=== PATIENT | female | born 1975 | race Caucasian/White ===

== ENCOUNTER → 2017-03-17 | Outpatient (CLI) | payer OTHER ==
[2014-08-03 14:12] VITALS: BP 123/80
[~2017-03-17] MED LIST: HYDR25SU4 RC; METR500T4 PO
--- NOTE | 2017-03-17 11:55 | KCIC ---
PROCEDURE Bilateral two-view feet HISTORY Pain at the bottom of both feet. COMPARISON None FINDINGS No evidence of acute fracture. No aggressive bone destruction. Joint spaces and alignment are intact. No evidence of soft tissue abnormality. IMPRESSION No acute radiographic abnormality. Electronically signed by: Feng Walker MD (March 17, 2017 11:53:00)
--- NOTE | 2017-03-17 11:58 | KCIC ---
PROCEDURE Bilateral two-view hand HISTORY Pain at both thumbs. COMPARISON None FINDINGS No acute fracture or bone destruction. Mild asymmetric narrowing at the lateral aspect the 5th DIP joint bilaterally with mild angulation of the joint, may be developmental given its symmetry. No dislocation. IMPRESSION No evidence of acute radiographic abnormality. Electronically signed by: Feng Walker MD (March 17, 2017 11:56:17)
--- NOTE | 2017-03-17 11:59 | KCIC ---
PROCEDURE Single view AP pelvis HISTORY Pain. COMPARISON None FINDINGS No evidence of acute fracture. No aggressive bone destruction. Joint spaces are intact. IMPRESSION No acute radiographic abnormality. Electronically signed by: Feng Walker MD (March 17, 2017 11:57:55)
== END | disposition home or self-care (01) ==
LOC: KCIC US 09:19
PROVIDERS: ATTEND Family Medicine
DX: M79.672 Pain in left foot (principal); M79.642 Pain in left hand; M79.641 Pain in right hand; R10.2 Pelvic and perineal pain
CPT/HCPCS: 72170; 73120; 73620

== ENCOUNTER 2017-10-15 20:05 | Emergency (ER) | payer OTHER ==
[~2017-10-15 20:05] MED LIST changes: -METR500T4 PO; +METR500T8 PO
[2017-10-15] MEDS ORDERED: DEXAMETHASONE SOD PHOS 20 MG/5 ML VIAL. IV ONE (20:30)
[2017-10-15] MEDS ORDERED: ASPIRIN ENTERIC COATED 325 MG TABLET.DR. PO ONE (20:30)
[2017-10-15] MEDS ORDERED: IPRATRPIUM/ALBUTEROL 0.5/2.5MG 3 ML NEBU. NEB ONE (20:30)
[2017-10-15 21:02] LABS: BASO # 0.1 x10^3/uL (0.0-0.2); BASO % 1 % (0-3); EOS % 4 % (0-3); HEMATOCRIT 39.6 % (36.0-47.0); HEMOGLOBIN 13.3 g/dL (12.0-15.5); LYMPH % 32 % (24-48); MEAN CORPUSCULAR HEMOGLOBIN 30 pg (25-35); MEAN CORPUSCULAR HGB CONC 34 g/dL (31-37); MEAN CORPUSCULAR VOLUME 89 fL (79-100); MONO % 6 % (0-9); NEUT % 57 % (31-73); PLATELET COUNT 285 x10^3/uL (140-400); RED BLOOD COUNT 4.46 x10^6/uL (3.50-5.40); RED CELL DISTRIBUTION WIDTH 13.1 % (11.5-14.5); WHITE BLOOD COUNT 9.4 x10^3/uL (4.0-11.0)
[2017-10-15 21:22] VITALS: BP 123/72
[2017-10-15 21:48] LABS: CALCIUM 8.6 mg/dL (8.5-10.1); CREATININE 0.8 mg/dL (0.6-1.0); GFR 77.9; INR 1.2 (0.8-1.1); PARTIAL THROMBOPLASTIN TIME 31 SEC (24-38); POTASSIUM 3.1 mmol/L (3.5-5.1); PROTHROMBIN TIME PATIENT 14.1 SEC (11.7-14.0)
[2017-10-15 21:54] LABS: ALBUMIN 3.6 g/dL (3.4-5.0); TOTAL BILIRUBIN 0.2 mg/dL (0.2-1.0); TOTAL PROTEIN 7.1 g/dL (6.4-8.2)
--- NOTE | 2017-10-15 22:02 | PHYS DOC ---
Past Medical History Past Medical History: No Pertinent History Past Surgical History: Cholecystectomy, Hysterectomy, Tonsillectomy, Other Additional Past Surgical Histo: I&D rectal abscess (was positive for MRSA) Alcohol Use: None Drug Use: None Adult General Chief Complaint Chief Complaint: CHEST PAIN HPI HPI Patient is a 42 year old female presenting to the emergency department for evaluation of chest pain that started approximately 6 hours prior to arrival at rest. 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 The first urgent care she went to said that they could not do a chest x-ray and sent her to another urgent care where she had a chest x-ray done. That urgent care told her that she should go to the emergency room. She says that she is having central sharp chest pain with no radiation diaphoresis nausea vomiting but she says that she feels short of breath in the sense that she cannot take a deep breath. She says that deep breaths make her pain worse. She denies any exertional pain fevers chills nausea vomiting or other systemic symptoms. She denies high blood pressure high cholesterol diabetes smoking history. She says that her mother of a heart attack in her late 50s. Heart score is equal to 1. Review of Systems Review of Systems Constitutional: Denies fever or chills [] Eyes: Denies change in visual acuity, redness, or eye pain [] HENT: Denies nasal congestion or sore throat [] Respiratory: + cough, shortness of breath [] Cardiovascular: + CP GI: Denies abdominal pain, nausea, vomiting, bloody stools or diarrhea [] : Denies dysuria or hematuria [] Musculoskeletal: Denies back pain or joint pain [] Integument: Denies rash or skin lesions [] Neurologic: Denies headache, focal weakness or sensory changes [] All other systems were reviewed and found to be within normal limits, except as documented in this note. Current Medications Current Medications Current Medications Medications (Trade) Dose Ordered Sig/Hailey Start Time Stop Time Status Last Admin Dose Admin Albuterol/ Ipratropium (Duoneb) 3 ml 1X ONCE 10/15/17 20:30 10/15/17 20:32 DC 10/15/17 21:05 3 ML Aspirin (Ecotrin) 325 mg 1X ONCE 10/15/17 20:30 10/15/17 20:32 DC 10/15/17 21:05 325 MG Dexamethasone Sodium Phosphate (Decadron) 8 mg 1X ONCE 10/15/17 20:30 10/15/17 20:32 DC 10/15/17 21:07 8 MG Potassium Chloride (Klor-Con) 40 meq 1X ONCE 10/15/17 22:30 10/15/17 22:30 DC 10/15/17 22:20 40 MEQ Allergies Allergies Allergies Coded Allergies Type Severity Reaction Last Updated Verified Penicillins Allergy Intermediate Unk reaction. 08/03/14 Yes Sulfa (Sulfonamide Antibiotics) Allergy Intermediate Severe N/V. 08/03/14 Yes prednisone Allergy Intermediate Joints ache are painful. 08/03/14 Yes prochlorperazine Allergy Intermediate Palpitations. 08/03/14 Yes promethazine Allergy Intermediate Palpitations. 08/03/14 Yes Physical Exam Physical Exam Constitutional: Well developed, well nourished, no acute distress, non-toxic appearance. [] HENT: Normocephalic, atraumatic, bilateral external ears normal, oropharynx moist, no oral exudates, nose normal. [] Eyes: PERRLA, EOMI, conjunctiva normal, no discharge. [] Neck: Normal range of motion, no tenderness, supple, no stridor. [] Cardiovascular:Heart rate regular rhythm, no murmur [] Lungs & Thorax: Bilateral breath sounds diminished with expiratory wheezing noted Abdomen: Bowel sounds normal, soft, no tenderness, no masses, no pulsatile masses. [] Skin: Warm, dry, no erythema, no rash. [] Back: No tenderness, no CVA tenderness. [] Extremities: No tenderness, no cyanosis, no clubbing, ROM intact, no edema. [] Neurologic: Alert and oriented X 3, normal motor function, normal sensory function, no focal deficits noted. [] Current Patient Data Vital Signs Vital Signs Date Time Temp Pulse Resp B/P (MAP) Pulse Ox O2 Delivery O2 Flow Rate FiO2 10/15/17 21:22 72 16 123/72 (89) 97 Room Air 10/15/17 20:16 97.8 97.8 Lab Values Laboratory Tests Test 10/15/17 20:53 10/15/17 21:30 White Blood Count 9.4 x10^3/uL (4.0-11.0) Red Blood Count 4.46 x10^6/uL (3.50-5.40) Hemoglobin 13.3 g/dL (12.0-15.5) Hematocrit 39.6 % (36.0-47.0) Mean Corpuscular Volume 89 fL (79-100) Mean Corpuscular Hemoglobin 30 pg (25-35) Mean Corpuscular Hemoglobin Concent 34 g/dL (31-37) Red Cell Distribution Width 13.1 % (11.5-14.5) Platelet Count 285 x10^3/uL (140-400) Neutrophils (%) (Auto) 57 % (31-73) Lymphocytes (%) (Auto) 32 % (24-48) Monocytes (%) (Auto) 6 % (0-9) Eosinophils (%) (Auto) 4 % (0-3) H Basophils (%) (Auto) 1 % (0-3) Neutrophils # (Auto) 5.4 x10^3uL (1.8-7.7) Lymphocytes # (Auto) 3.0 x10^3/uL (1.0-4.8) Monocytes # (Auto) 0.6 x10^3/uL (0.0-1.1) Eosinophils # (Auto) 0.3 x10^3/uL (0.0-0.7) Basophils # (Auto) 0.1 x10^3/uL (0.0-0.2) Troponin I Quantitative < 0.017 ng/mL (0.000-0.055) Prothrombin Time 14.1 SEC (11.7-14.0) H Prothrombin Time INR 1.2 (0.8-1.1) H PTT 31 SEC (24-38) D-Dimer (Lydia) < 0.27 ug/mlFEU Sodium Level 140 mmol/L (136-145) Potassium Level 3.1 mmol/L (3.5-5.1) L Chloride Level 105 mmol/L (98-107) Carbon Dioxide Level 24 mmol/L (21-32) Anion Gap 11 (6-14) Blood Urea Nitrogen 8 mg/dL (7-20) Creatinine 0.8 mg/dL (0.6-1.0) Estimated GFR (Cockcroft-Gault) 77.9 BUN/Creatinine Ratio 10 (6-20) Glucose Level 107 mg/dL (70-99) H Calcium Level 8.6 mg/dL (8.5-10.1) Magnesium Level 2.0 mg/dL (1.8-2.4) Total Bilirubin 0.2 mg/dL (0.2-1.0) Aspartate Amino Transferase (AST) 15 U/L (15-37) Alanine Aminotransferase (ALT) 21 U/L (14-59) Alkaline Phosphatase 65 U/L (46-116) Total Protein 7.1 g/dL (6.4-8.2) Albumin 3.6 g/dL (3.4-5.0) Albumin/Globulin Ratio 1.0 (1.0-1.7) Laboratory Tests 10/15/17 20:53 Laboratory Tests 10/15/17 21:30 EKG EKG Sinus rhythm at 64 bpm with normal axis no obvious ST elevation or depression and normal T waves. Radiology/Procedures Radiology/Procedures Chest x-ray reviewed from outside facility showed normal mediastinum and normal heart size no obvious free air pneumothorax or opacity. Course & Med Decision Making Course & Med Decision Making Patient with chest pain that started more than 6 hours prior to arrival with negative troponin and EKG. Her d-dimer is negative and she said the breathing treatment made her shortness of breath and pain go away. I see no reason for admission or further workup given she appears well normal vital signs benign physical exam and workup. She will be discharged and told to take an aspirin daily not to exert herself and follow with primary care provider and/or email marketing coordinator within 72 hours and come back to the ED sooner with worsening pain shortness of breath or other general concerns. Patient aware and agreeable with plan for discharge and verbalized understanding of the need for short-term follow-up in the strict ED return precautions that were discussed as above. Dragon Disclaimer Dragon Disclaimer This electronic medical record was generated, in whole or in part, using a voice recognition dictation system. Departure Departure Impression: Primary Impression: Chest pain Additional Impressions: Bronchitis Hypokalemia Disposition: 01 HOME, SELF-CARE Condition: STABLE Referrals: NO PCP (PCP) BIRDIE JUAREZ MD Patient Instructions: Chest Pain (Nonspecific) Additional Instructions: TAKE A FULL DOSE ASPIRIN DAILY. DO NOT EXERT YOURSELF. 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 THANK YOU! Problem Qualifiers Primary Impression: Chest pain Chest pain type: unspecified Qualified Codes: R07.9 - Chest pain, unspecified SANDRA PORTER DO Oct 15, 2017 22:02
[2017-10-15] MEDS ORDERED: POTASSIUM CHLORIDE 20 MEQ TABLET.ER. PO ONE (22:30)
--- NOTE | 2017-10-16 06:22 | EKG ---
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
== END 2017-10-15 22:27 | disposition home or self-care (01) ==
LOC: ER 20:05
DX: R07.89 Other chest pain (principal); J40 Bronchitis, not specified as acute or chronic; E87.6 Hypokalemia; Z88.0 Allergy status to penicillin; Z88.2 Allergy status to sulfonamides; Z88.8 Allergy status to other drugs, medicaments and biological substances
CPT/HCPCS: 36415; 80053; 83735; 84484; 85025; 85379; 85610; 85730; 93005; 94250; 94640; 96374; 99285; J1100; J7620

== ENCOUNTER → 2017-11-10 | Outpatient (CLI) | payer OTHER | END | disposition home or self-care (01) | LOC: ECHO 12:49 | DX: I34.0 Nonrheumatic mitral (valve) insufficiency (principal) | CPT/HCPCS: 93017; 93306; 93350 ==

== ENCOUNTER 2021-12-03 11:49 | Emergency (ER) | payer OTHER ==
[~2021-12-03] VITALS: Ht 165.1 cm; Wt 95.0 kg
[~2021-12-03 11:49] MED LIST changes: +METR-34 PO; -METR500T8 PO
--- NOTE | 2021-12-03 12:11 | PHYS DOC ---
Past Medical History Past Medical History: No Pertinent History Past Surgical History: No Surgical History Additional Past Surgical Histo: I&D rectal abscess (was positive for MRSA) Smoking Status: Current Every Day Smoker Alcohol Use: None Drug Use: None General Adult EDM: Chief Complaint: FLANK PAIN HPI: HPI: Patient is a 46-year-old female who presents to the emergency department for left flank pain that started this morning. Patient reports that prior to this weekend she was having some fatigue and had 2 - Covid test at home. Patient is also reporting dysuria with urinary frequency and urgency. She does not have any medical history. No history of kidney stones. Patient denies nausea, vomiting, abdominal pain, fevers, hematuria. Review of Systems: Review of Systems: Constitutional: negative unless reported in HPI Eyes: negative unless reported in HPI HENT: negative unless reported in HPI Respiratory: negative unless reported in HPI Cardiovascular: negative unless reported in HPI GI: negative unless reported in HPI : negative unless reported in HPI Musculoskeletal: negative unless reported in HPI Integument: negative unless reported in HPI Neurologic: negative unless reported in HPI Endocrine: negative unless reported in HPI Lymphatic: negative unless reported in HPI Psychiatric: negative unless reported in HPI Heart Score: C/O Chest Pain: N/A Risk Factors: Risk Factors: DM, Current or recent (<one month) smoker, HTN, HLP, family histo ry of CAD, obesity. Risk Scores: Score 0 - 3: 2.5% MACE over next 6 weeks - Discharge Home Score 4 - 6: 20.3% MACE over next 6 weeks - Admit for Clinical Observation Score 7 - 10: 72.7% MACE over next 6 weeks - Early Invasive Strategies Allergies: Allergies: Allergies Coded Allergies Type Severity Reaction Last Updated Verified Penicillins Allergy Intermediate Unk reaction. 12/03/21 Yes Sulfa (Sulfonamide Antibiotics) Adverse Reaction Intermediate Severe N/V. 12/03/21 Yes prednisone Adverse Reaction Intermediate Joints ache are painful. 12/03/21 Yes prochlorperazine Adverse Reaction Intermediate Palpitations. 12/03/21 Yes promethazine Adverse Reaction Intermediate Palpitations. 12/03/21 Yes Physical Exam: PE: Constitutional: Well developed, well nourished, no acute distress, non-toxic appearance. [] HENT: Normocephalic, atraumatic, bilateral external ears normal, oropharynx moist, no oral exudates, nose normal. [] Eyes: PERRL, EOMI, conjunctiva normal, no discharge. [] Neck: Normal range of motion, no tenderness, supple, no stridor. [] Cardiovascular:Heart rate regular rhythm, no murmur [] Lungs & Thorax: Bilateral breath sounds clear to auscultation [] Abdomen: Bowel sounds normal, soft, no tenderness, no masses, no guarding, no rigidity,, no pulsatile masses. [] Skin: Warm, dry, no erythema, no rash. [] Back: No tenderness, left CVA tenderness Extremities: No tenderness, no cyanosis, no clubbing, ROM intact, no edema. [] Neurologic: Alert and oriented X 3, normal motor function, normal sensory function, no focal deficits noted. [] Psychologic: Affect normal, judgement normal, mood normal. [] Current Patient Data: Labs: Laboratory Tests Test 12/03/21 12:34 12/03/21 13:12 Urine Collection Type Unknown Urine Color Yellow Urine Clarity Clear Urine pH 6.0 Urine Specific [place] <=1.005 Urine Protein Negative mg/dL Urine Glucose (UA) Negative mg/dL Urine Ketones (Stick) Negative mg/dL Urine Blood Large Urine Nitrite Negative Urine Bilirubin Negative Urine Urobilinogen Dipstick 0.2 mg/dL Urine Leukocyte Esterase Negative Urine RBC 0 /HPF Urine WBC Rare /HPF Urine Squamous Epithelial Cells Few /LPF Urine Bacteria Few /HPF Urine Mucus Slight /LPF Urine Test Negative White Blood Count 9.4 x10^3/uL Red Blood Count 4.84 x10^6/uL Hemoglobin 14.3 g/dL Hematocrit 41.4 % Mean Corpuscular Volume 86 fL Mean Corpuscular Hemoglobin 30 pg Mean Corpuscular Hemoglobin Concent 35 g/dL Red Cell Distribution Width 12.4 % Platelet Count 254 x10^3/uL Neutrophils (%) (Auto) 65 % Lymphocytes (%) (Auto) 25 % Monocytes (%) (Auto) 6 % Eosinophils (%) (Auto) 3 % Basophils (%) (Auto) 1 % Neutrophils # (Auto) 6.1 x10^3/uL Lymphocytes # (Auto) 2.4 x10^3/uL Monocytes # (Auto) 0.6 x10^3/uL Eosinophils # (Auto) 0.2 x10^3/uL Basophils # (Auto) 0.1 x10^3/uL Sodium Level 135 mmol/L Potassium Level 4.2 mmol/L Chloride Level 104 mmol/L Carbon Dioxide Level 23 mmol/L Anion Gap 8 Blood Urea Nitrogen 11 mg/dL Creatinine 0.7 mg/dL Estimated GFR (Cockcroft-Gault) 89.3 BUN/Creatinine Ratio 16 Glucose Level 99 mg/dL Calcium Level 8.4 mg/dL Total Bilirubin 0.3 mg/dL Aspartate Amino Transf (AST/SGOT) 21 U/L Alanine Aminotransferase (ALT/SGPT) 38 U/L Alkaline Phosphatase 59 U/L Total Protein 7.1 g/dL Albumin 3.6 g/dL Albumin/Globulin Ratio 1.0 Current Medications Medications (Trade) Dose Ordered Sig/Hailey Route PRN Reason Start Time Stop Time Status Last Admin Dose Admin Sodium Chloride 1,000 ml @ 1,000 mls/hr 1X ONCE IV 12/03/21 13:00 12/03/21 13:59 DC 12/03/21 13:00 Ketorolac Tromethamine (Toradol 30mg Vial) 30 mg 1X ONCE IVP 12/03/21 13:15 12/03/21 13:16 DC 12/03/21 13:15 Vital Signs: Vital Signs Date Time Temp Pulse Resp B/P (MAP) Pulse Ox O2 Delivery O2 Flow Rate FiO2 12/03/21 12:01 98.5 104 16 155/107 (123) 96 Room Air 98.5 EKG: EKG: [] Radiology/Procedures: Radiology/Procedures: []STATUS: REG [facility]. PHYSICIAN: MONTRELL VILLATORO APRN REASON: l. flank pain, r/o stone PROCEDURE: CT ABDOMEN PELVIS WO CONTRAST INDICATION: Reason: l. flank pain, r/o stone / Spl. Instructions: / History: COMPARISON: None. TECHNIQUE: Axial CT images were obtained through the abdomen and pelvis without intravenous contrast. One or more of the following individualized dose reduction techniques were utilized for this examination: 1. Automated exposure control; 2. Adjustment of the mA and/or kV according to patient size; 3. Use of iterative reconstruction technique. FINDINGS: Fat-containing umbilical hernia. Vascular: Scattered calcific atherosclerosis. Hepatobiliary: Liver prominent in size. Postcholecystectomy. Small hiatal hernia. Pancreas: Limited assessment secondary to lack of contrast. Spleen: Spleen unremarkable. Renal/Bladder: Nonobstructive left renal stones. Mild left-sided hydronephrosis with 3 mm left proximal ureter stone. Urinary bladder is somewhat distended at time of exam. Gastrointestinal: Colonic diverticulosis. No periappendiceal inflammatory changes. Fat-containing anterior abdominal wall hernia. Mild degenerative changes spine. IMPRESSION: * Mild left-sided hydronephrosis with proximal ureter stone. Electronically signed by: Sara Vieira MD (12/03/2021 3:13 PM) [id number] DICTATED and SIGNED BY: SARA VIEIRA MD DATE: 12/03/21 [id number] 0 Course & Med Decision Making: Course & Med Decision Making Pertinent Labs and Imaging studies reviewed. (See chart for details) [] Patient resents emergency department for left flank pain with dysuria and urinary frequency and urgency that started this morning. Urinalysis shows large amount of blood but no clear infection as there is only rare white blood cells and no leukocytes. CBC and CMP were unremarkable. CT scan of abdomen and pelvis shows a 3 mm stone with mild left hydronephrosis in the proximal ureter. Her vital signs are stable she is in no acute distress. Patient will be discharged home with pain medication and Flomax. She is advised to increase her fluids and she will give be given urology follow-up information. I discussed with patient all findings and diagnostic testing as well as the need to follow- up with PCP for further evaluation and treatment or return to the ER if any new or worsening symptoms. Strict return precautions were also discussed at length. Patient voiced understanding and agreement with the plan. Patient is hemodynamically stable at the time of disposition. Dorian Disclaimer: Dorian Disclaimer: This electronic medical record was generated, in whole or in part, using a voice recognition dictation system. Departure Departure Impression: Primary Impression: Kidney stone Disposition: HOME / SELF CARE / HOMELESS Condition: GOOD Referrals: NO PCP (PCP) MARIA ANTONIA WHITE MD Patient Instructions: Kidney Stones Additional Instructions: You were seen in the ER today for flank pain and bloody urine. You have a kidney stone that will hopefully pass. We are writing a prescription for pain medication and a medication to help dilate the ureter so that you can pass the stone more easily. You should strain your urine and look for the stone. You will need to follow-up with urologist as soon as possible. Please see the referral information for the urologist attached to this paper. Increase your fluids. You should return to the ER if you have worsening pain, fever, continued bloody urine, lightheadedness, shortness of breath, chest pain or any new or concerning symptoms. Scripts Tamsulosin Hcl (FLOMAX) 0.4 Mg Cap.er.24h 1 CAP PO DAILY for 14 Days, #14 CAP 0 Refills Prov: MONTRELL VILLATORO APRN 12/03/21 Hydrocodone Bit/Acetaminophen (HYDROCODONE-APAP 5-325 ) 1 Tab Tablet 1 TAB PO PRN Q6HRS PRN for PAIN for 2 Days, #8 TAB 0 Refills Prov: MONTRELL VILLATORO APRN 12/03/21 MONTRELL VILLATORO APRN Dec 03, 2021 12:11
[2021-12-03 12:47] LABS: BILIRUBIN,URINE NEGATIVE (NEG); CLARITY,URINE CLEAR; COLOR,URINE YELLOW; NITRITE,URINE NEGATIVE (NEG); PROTEIN,URINE NEGATIVE (NEG-TRACE); UROBILINOGEN,URINE 0.2 mg/dL (0.2 mg/dL)
[2021-12-03 12:55] LABS: BACTERIA,URINE FEW /HPF (0-FEW); RBC,URINE 0 /HPF (0-2); WBC,URINE RARE /HPF (0-4)
[2021-12-03] MEDS: IV NORMAL SALINE 1000ML BAG 1,000 ML IV ONE (13:00)
[2021-12-03] MEDS: KETOROLAC 30 MG/ML VIAL. IVP ONE (13:15)
[2021-12-03 13:26] LABS: BASO # 0.1 x10^3/uL (0.0-0.2); BASO % 1 % (0-3); EOS # 0.2 x10^3/uL (0.0-0.7); EOS % 3 % (0-3); HEMATOCRIT 41.4 % (36.0-47.0); HEMOGLOBIN 14.3 g/dL (12.0-15.5); LYMPH # 2.4 x10^3/uL (1.0-4.8); LYMPH % 25 % (24-48); MEAN CORPUSCULAR HEMOGLOBIN 30 pg (25-35); MEAN CORPUSCULAR HGB CONC 35 g/dL (31-37); MEAN CORPUSCULAR VOLUME 86 fL (79-100); MONO # 0.6 x10^3/uL (0.0-1.1); MONO % 6 % (0-9); NEUT # 6.1 x10^3/uL (1.8-7.7); NEUT % 65 % (31-73); PLATELET COUNT 254 x10^3/uL (140-400); RED BLOOD COUNT 4.84 x10^6/uL (3.50-5.40); RED CELL DISTRIBUTION WIDTH 12.4 % (11.5-14.5); WHITE BLOOD COUNT 9.4 x10^3/uL (4.0-11.0)
[2021-12-03 13:37] LABS: CALCIUM 8.4 mg/dL (8.5-10.1); CREATININE 0.7 mg/dL (0.6-1.0); GFR 89.3; POTASSIUM 4.2 mmol/L (3.5-5.1)
[2021-12-03 13:44] LABS: ALBUMIN 3.6 g/dL (3.4-5.0); TOTAL BILIRUBIN 0.3 mg/dL (0.2-1.0); TOTAL PROTEIN 7.1 g/dL (6.4-8.2)
[2021-12-03 14:18] LABS: U PREG PATIENT NEGATIVE (NEG)
--- NOTE | 2021-12-03 15:15 | RAD ---
INDICATION: Reason: l. flank pain, r/o stone / Spl. Instructions: / History: COMPARISON: None. TECHNIQUE: Axial CT images were obtained through the abdomen and pelvis without intravenous contrast. One or more of the following individualized dose reduction techniques were utilized for this examinat ion: 1. Automated exposure control; 2. Adjustment of the mA and/or kV according to patient size; 3 . Use of iterative reconstruction technique. FINDINGS: Fat-containing umbilical hernia. Vascular: Scattered calcific atherosclerosis. Hepatobiliary: Liver prominent in size. Postcholecystectomy. Small hiatal hernia. Pancreas: Limited assessment secondary to lack of contrast. Spleen: Spleen unremarkable. Renal/Bladder: Nonobstructive left renal stones. Mild left-sided hydronephrosis with 3 mm left proxim al ureter stone. Urinary bladder is somewhat distended at time of exam. Gastrointestinal: Colonic diverticulosis. No periappendiceal inflammatory changes. Fat-containing ant erior abdominal wall hernia. Mild degenerative changes spine. IMPRESSION: * Mild left-sided hydronephrosis with proximal ureter stone. Electronically signed by: Arnulfo Vieira MD (12/03/2021 3:13 PM) [id number]
[2021-12-03] MEDS ORDERED: TAMS0.4C97 PO (15:26)
[2021-12-03] MEDS ORDERED: HYDR-2761 PO (15:26)
[2021-12-03 15:47] VITALS: BP 145/90
== END 2021-12-03 15:48 | disposition home or self-care (01) ==
LOC: ER 11:49
DX: N13.2 Hydronephrosis with renal and ureteral calculous obstruction (principal); F17.200 Nicotine dependence, unspecified, uncomplicated; Z88.0 Allergy status to penicillin; Z88.2 Allergy status to sulfonamides; Z88.5 Allergy status to narcotic agent; Z88.8 Allergy status to other drugs, medicaments and biological substances
CPT/HCPCS: 36415; 74176; 80053; 81001; 81025; 85025; 96361; 96374; 99284; J1885; J7030